=== PATIENT | female | born 1945 | race Caucasian/White ===

== ENCOUNTER 2018-07-20 13:11 | Inpatient (IN) | payer MEDICARE ==
[~2018-07-20] VITALS: Ht 180.3 cm; Wt 113.0 kg
[2018-07-20 17:43] VITALS: BP 136/89
[2018-07-20] MEDS ORDERED: PLEASE ENTER HEIGHT AND WEIGHT MC SCH (18:00)
[2018-07-20] MEDS ORDERED: LABETALOL 5MG/ML, 20ML IVPush PRN (18:00)
[2018-07-20] MEDS ORDERED: PLEASE ENTER ALLERGIES MC SCH (18:00)
[2018-07-20] MEDS ORDERED: hydrALAzine 20 MG/ML, 1ML IVPush PRN (18:00)
[2018-07-20] MEDS ORDERED: VALP250C59 PO (18:38)
[2018-07-20] MEDS ORDERED: SCOP1PAT11 TD (18:38)
[2018-07-20] MEDS ORDERED: LACT1CAP61 PO (18:38)
[2018-07-20] MEDS ORDERED: ALLO300T PO (18:38)
[2018-07-20] MEDS ORDERED: ISOS30TA8 PO (18:38)
[2018-07-20] MEDS ORDERED: HYDR-3240 PO (18:38)
[2018-07-20] MEDS ORDERED: DILT180C72 PO (18:38)
[2018-07-20] MEDS ORDERED: ATOR20TA9 PO (18:38)
[2018-07-20] MEDS ORDERED: PROM25TA10 PO (18:38)
[2018-07-20] MEDS ORDERED: METO50TA82 PO (18:38)
[2018-07-20] MEDS ORDERED: CYCL-259 PO (18:38)
[2018-07-20] MEDS ORDERED: PRED20TA PO (18:38)
[2018-07-20] MEDS ORDERED: ONDA4TAB7 PO (18:38)
[2018-07-20] MEDS ORDERED: DIAZ2TAB PO (18:38)
[2018-07-20] MEDS ORDERED: MECL-76 PO (18:38)
[2018-07-20 18:50] LABS: ANION GAP 8 mmol/L (5-15); CALCIUM 9.3 mg/dL (8.5-10.1); CHLORIDE 103 mmol/L (98-107); CREATININE 0.86 mg/dL (0.55-1.02)
[2018-07-20 19:17] LABS: MD YES; MEAN CORPUSCULAR HGB CONC 31.2 g/dL (32.4-35.8); MEAN CORPUSCULAR VOLUME 67.3 fL (80-100); MEAN PLATELET VOLUME 7.7 fL (7.4-10.4); PLATELET COUNT 140 x10^3/uL (130-400); RED BLOOD COUNT 6.52 x10^6/uL (3.82-5.3); RED CELL DISTRIBUTION WIDTH 17.9 % (9.6-15.2)
[2018-07-20 19:19] LABS: ANISOCYTOSIS 1+; HYPOCHROMIA 1+; LYMPH#(MANUAL) 1.79 x10^3/uL (1-3.4); LYMPHS% (MANUAL) 16 % (22-44); MICROCYTOSIS 1+; MONOS#(MANUAL) 0.22 x10^3/uL (0.3-2.7); MONOS% (MANUAL) 2 % (2-9); MYELOCYTES# (MANUAL) 0.11 x10^3/uL (0-0); MYELOCYTES% (MANUAL) 1 % (0-0); SEG#(MANUAL) 9.07 x10^3/uL (1.8-6.8); SEGS% (MANUAL) 81 % (42-75)
[2018-07-20 19:20] LABS: OVALOCYTES 1+; POLYCHROMASIA 1+; TARGET CELLS 1+
[2018-07-20 19:21] LABS: <PLATELET ESTIMATE> ADEQUATE; LARGE PLATELETS 1+
[2018-07-20] MEDS ORDERED: SCOPOLAMINE TD SCH (20:00)
[2018-07-20] MEDS ORDERED: HYDROcodone/APAP 5/325 TABLET PO PRN (20:00)
[2018-07-20] MEDS ORDERED: ONDANSETRON 4 MG TABLET PO PRN (20:00)
[2018-07-20] MEDS ORDERED: DIAZEPAM 2 MG TABLET PO PRN (20:00)
[2018-07-20] MEDS ORDERED: PROMETHAZINE 25MG TABLET PO PRN (20:00)
[2018-07-20 20:48] VITALS: BP 131/88
[2018-07-20] MEDS: VALPROIC ACID 250 MG CAPSULE PO SCH (20:59)
[2018-07-20] MEDS: METOPROLOL TARTRATE 50 MG TABLET PO SCH (20:59)
[2018-07-20] MEDS: CYCLOBENZAPRINE 10 MG TABLET PO SCH (20:59)
[2018-07-20] MEDS: ATORVASTATIN 20 MG TABLET PO SCH (20:59)
[2018-07-20] MEDS: MECLIZINE 12.5 MG TABLET PO SCH (20:59)
[2018-07-20] MEDS: FAMOTIDINE 20 MG TABLET PO SCH (20:59)
[2018-07-21 02:31] VITALS: BP 124/71
[2018-07-21] MEDS: CYCLOBENZAPRINE 10 MG TABLET PO SCH ×3 (04:08→21:43)
[2018-07-21] MEDS: VALPROIC ACID 250 MG CAPSULE PO SCH ×3 (04:08→21:44)
[2018-07-21] MEDS: MECLIZINE 12.5 MG TABLET PO SCH ×3 (04:10→21:44)
[2018-07-21 08:08] VITALS: BP 135/83
[2018-07-21] MEDS: ISOSORBIDE MONONITRATE ER 30 MG TABLET PO SCH (08:24)
[2018-07-21] MEDS: ALLOPURINOL 300 MG TABLET PO SCH (08:24)
[2018-07-21] MEDS: DILTIAZEM CD 180 MG CAP.ER.24H PO SCH (08:24)
[2018-07-21] MEDS: METOPROLOL TARTRATE 50 MG TABLET PO SCH ×2 (08:25→21:43)
[2018-07-21] MEDS ORDERED: BISACODYL 10 MG SUPP PR PRN (12:30)
[2018-07-21 13:08] LABS: ANION GAP 8 mmol/L (5-15); CALCIUM 8.9 mg/dL (8.5-10.1); CHLORIDE 104 mmol/L (98-107)
[2018-07-21 14:13] VITALS: BP 103/67
[2018-07-21 20:09] VITALS: BP 129/78
[2018-07-21] MEDS: FAMOTIDINE 20 MG TABLET PO SCH (21:44)
[2018-07-21] MEDS: ATORVASTATIN 20 MG TABLET PO SCH (21:44)
[2018-07-22 02:46] VITALS: BP 114/81
[2018-07-22] MEDS: CYCLOBENZAPRINE 10 MG TABLET PO SCH ×3 (05:31→20:00)
[2018-07-22] MEDS: MECLIZINE 12.5 MG TABLET PO SCH ×3 (05:32→20:00)
[2018-07-22] MEDS: VALPROIC ACID 250 MG CAPSULE PO SCH ×3 (05:32→20:00)
[2018-07-22 07:46] VITALS: BP 117/74
[2018-07-22] MEDS: ALLOPURINOL 300 MG TABLET PO SCH (09:08)
[2018-07-22] MEDS: DILTIAZEM CD 180 MG CAP.ER.24H PO SCH (09:08)
[2018-07-22] MEDS: METOPROLOL TARTRATE 50 MG TABLET PO SCH ×2 (09:08→20:00)
[2018-07-22] MEDS: SENNA/DOCUSATE TABLET PO SCH (09:08)
[2018-07-22] MEDS: ISOSORBIDE MONONITRATE ER 30 MG TABLET PO SCH (09:18)
[2018-07-22 12:24] VITALS: BP 104/64
[2018-07-22 14:45] VITALS: BP 98/63
[2018-07-22 19:58] VITALS: BP 121/84
[2018-07-22] MEDS: FAMOTIDINE 20 MG TABLET PO SCH (20:00)
[2018-07-22] MEDS: ATORVASTATIN 20 MG TABLET PO SCH (20:00)
[2018-07-23] MEDS: SODIUM CHLORIDE 0.9% 1,000 ML IV SCH ×2 (00:06→09:14)
[2018-07-23 00:52] VITALS: BP 107/72
[2018-07-23] MEDS: CYCLOBENZAPRINE 10 MG TABLET PO SCH ×3 (04:00→20:00)
[2018-07-23] MEDS: MECLIZINE 12.5 MG TABLET PO SCH ×3 (04:00→20:00)
[2018-07-23] MEDS: VALPROIC ACID 250 MG CAPSULE PO SCH ×3 (04:00→20:00)
[2018-07-23 07:46] VITALS: BP 137/81
[2018-07-23] MEDS: SENNA/DOCUSATE TABLET PO SCH (09:00)
[2018-07-23] MEDS: ISOSORBIDE MONONITRATE ER 30 MG TABLET PO SCH (09:00)
[2018-07-23] MEDS: DILTIAZEM CD 180 MG CAP.ER.24H PO SCH (09:00)
[2018-07-23] MEDS: ALLOPURINOL 300 MG TABLET PO SCH (09:00)
[2018-07-23] MEDS: METOPROLOL TARTRATE 50 MG TABLET PO SCH ×2 (09:08→21:00)
[2018-07-23 13:11] VITALS: BP 114/78
[2018-07-23] MEDS ORDERED: FENTANYL PF 100 MCG/2ML ONE ×2 (15:36→18:44)
[2018-07-23] MEDS ORDERED: BUPIVACAINE/PF-EPI 0.5% 1:200K ONE (16:27)
[2018-07-23] MEDS ORDERED: NEOSTIGMINE 1 MG/ML, 10ML ONE (16:34)
[2018-07-23] MEDS ORDERED: PROPOFOL 10 MG/ML, 20ML ONE (16:34)
[2018-07-23] MEDS ORDERED: GLYCOPYRROLATE 0.2MG/1ML, 5ML ONE (16:34)
[2018-07-23] MEDS ORDERED: ROCURONIUM 10 MG/ML,10ML ONE (16:34)
[2018-07-23] MEDS ORDERED: ONDANSETRON 2MG/ML, 2ML ONE (16:34)
[2018-07-23] MEDS ORDERED: PHENYLEPHRINE 10 MG/ML ONE (16:34)
[2018-07-23] MEDS ORDERED: DEXAMETHASONE 4 MG/ML, 1ML ONE (16:34)
[2018-07-23] MEDS ORDERED: CEFAZOLIN 1,000 MG ONE (16:34)
[2018-07-23] MEDS ORDERED: PROMETHAZINE 25 MG SUPP PR PRN (18:00)
[2018-07-23] MEDS ORDERED: ONDANSETRON 2MG/ML, 2ML IV PRN (18:00)
[2018-07-23] MEDS ORDERED: LABETALOL 5MG/ML, 20ML IV PRN (18:00)
[2018-07-23] MEDS ORDERED: MIDAZOLAM 1 MG/ML, 2ML IV PRN (18:00)
[2018-07-23] MEDS ORDERED: ALBUTEROL/IPRATROPIUM 2.5MG/0.5MG, 3 ML NPPB PRN (18:00)
[2018-07-23] MEDS: FENTANYL PF 100 MCG/2ML IV PRN ×3 (18:40→18:59)
[2018-07-23 20:13] VITALS: BP 117/76
[2018-07-23] MEDS: FAMOTIDINE 20 MG TABLET PO SCH (21:00)
[2018-07-23] MEDS: ATORVASTATIN 20 MG TABLET PO SCH (21:00)
[2018-07-24 00:14] VITALS: BP 130/82
[2018-07-24] MEDS: SODIUM CHLORIDE 0.9% 1,000 ML IV SCH ×3 (01:12→20:34)
[2018-07-24] MEDS: MECLIZINE 12.5 MG TABLET PO SCH ×3 (04:00→20:32)
[2018-07-24] MEDS: VALPROIC ACID 250 MG CAPSULE PO SCH ×3 (04:00→20:32)
[2018-07-24] MEDS: CYCLOBENZAPRINE 10 MG TABLET PO SCH ×3 (04:00→20:33)
[2018-07-24 04:03] VITALS: BP 122/81
[2018-07-24 07:06] VITALS: BP 127/82
[2018-07-24] MEDS: DILTIAZEM CD 180 MG CAP.ER.24H PO SCH (09:00)
[2018-07-24] MEDS: ISOSORBIDE MONONITRATE ER 30 MG TABLET PO SCH (09:00)
[2018-07-24] MEDS: ALLOPURINOL 300 MG TABLET PO SCH (09:00)
[2018-07-24] MEDS: METOPROLOL TARTRATE 50 MG TABLET PO SCH ×2 (09:00→20:33)
[2018-07-24] MEDS: SENNA/DOCUSATE TABLET PO SCH (09:00)
[2018-07-24] MEDS ORDERED: OMNIPAQUE 350 MG/ML, 50 ML BOTTLE ONE (09:43)
[2018-07-24 12:26] VITALS: BP 137/86
[2018-07-24 19:45] VITALS: BP 132/62
[2018-07-24] MEDS: FAMOTIDINE 20 MG TABLET PO SCH (20:32)
[2018-07-24] MEDS: ATORVASTATIN 20 MG TABLET PO SCH (20:33)
[2018-07-25 01:54] VITALS: BP 115/76
[2018-07-25] MEDS: VALPROIC ACID 250 MG CAPSULE PO SCH ×2 (04:23→11:52)
[2018-07-25] MEDS: CYCLOBENZAPRINE 10 MG TABLET PO SCH ×3 (04:24→20:42)
[2018-07-25] MEDS: MECLIZINE 12.5 MG TABLET PO SCH ×3 (04:24→20:42)
[2018-07-25 07:20] VITALS: BP 131/87
[2018-07-25] MEDS: ALLOPURINOL 300 MG TABLET PO SCH (07:58)
[2018-07-25] MEDS: ISOSORBIDE MONONITRATE ER 30 MG TABLET PO SCH (07:59)
[2018-07-25] MEDS: METOPROLOL TARTRATE 50 MG TABLET PO SCH ×2 (07:59→20:43)
[2018-07-25] MEDS: SENNA/DOCUSATE TABLET PO SCH (07:59)
[2018-07-25] MEDS: DILTIAZEM CD 180 MG CAP.ER.24H PO SCH (07:59)
[2018-07-25] MEDS: SODIUM CHLORIDE 0.9% 1,000 ML IV SCH ×2 (08:08→20:44)
[2018-07-25 13:06] LABS: ALBUMIN 2.6 g/dL (3.4-5.0); ANION GAP 5 mmol/L (5-15); CHLORIDE 105 mmol/L (98-107)
[2018-07-25 13:07] LABS: CREATININE 0.48 mg/dL (0.55-1.02)
[2018-07-25 14:20] VITALS: BP 142/92
[2018-07-25 19:42] VITALS: BP 148/91
[2018-07-25] MEDS: FAMOTIDINE 20 MG TABLET PO SCH (20:42)
[2018-07-25] MEDS: ATORVASTATIN 20 MG TABLET PO SCH (20:43)
[2018-07-25] MEDS: VALPROATE SODIUM 250 MG/5 ML ORAL SOLN PO SCH (20:51)
[2018-07-26 02:01] VITALS: BP 137/86
[2018-07-26] MEDS: MECLIZINE 12.5 MG TABLET PO SCH ×2 (04:23→12:00)
[2018-07-26] MEDS: CYCLOBENZAPRINE 10 MG TABLET PO SCH ×2 (04:23→13:04)
[2018-07-26] MEDS: VALPROATE SODIUM 250 MG/5 ML ORAL SOLN PO SCH ×2 (05:25→13:04)
[2018-07-26] MEDS: SODIUM CHLORIDE 0.9% 1,000 ML IV SCH (06:36)
[2018-07-26 07:05] VITALS: BP 145/102
[2018-07-26] MEDS: ISOSORBIDE MONONITRATE ER 30 MG TABLET PO SCH (09:00)
[2018-07-26] MEDS: DILTIAZEM CD 180 MG CAP.ER.24H PO SCH (09:00)
[2018-07-26] MEDS: SENNA/DOCUSATE TABLET PO SCH (09:11)
[2018-07-26] MEDS: METOPROLOL TARTRATE 50 MG TABLET PO SCH (09:11)
[2018-07-26] MEDS: ALLOPURINOL 300 MG TABLET PO SCH (09:11)
[2018-07-26 12:23] VITALS: BP 158/86
== END 2018-07-26 16:59 | DRG 391 ==
LOC: 4NOR 17:03
PROVIDERS: ADMIT Hospitalist; ATTEND Hospitalist
PROC: 8E0W4CZ Robotic Assisted Procedure of Trunk Region, Percutaneous Endoscopic Approach (ICD-10-PCS; 2018-07-23)
PROC: 0DHA3UZ Insertion of Feeding Device into Jejunum, Percutaneous Approach (ICD-10-PCS; principal; 2018-07-23 16:00)
DX: R13.10 Dysphagia, unspecified (principal); E43 Unspecified severe protein-calorie malnutrition; I69.351 Hemiplegia and hemiparesis following cerebral infarction affecting right dominant side; I69.354 Hemiplegia and hemiparesis following cerebral infarction affecting left non-dominant side; M10.9 Gout, unspecified; E87.5 Hyperkalemia; I10 Essential (primary) hypertension; I25.10 Atherosclerotic heart disease of native coronary artery without angina pectoris; I48.2 Chronic atrial fibrillation; Z93.4 Other artificial openings of gastrointestinal tract status; Z95.0 Presence of cardiac pacemaker; I69.391 Dysphagia following cerebral infarction; Z68.34 Body mass index [BMI] 34.0-34.9, adult; Z98.61 Coronary angioplasty status; Z88.0 Allergy status to penicillin; Z88.8 Allergy status to other drugs, medicaments and biological substances; I69.322 Dysarthria following cerebral infarction
CPT/HCPCS: 36415; 71045; 74018; 80048; 82040; 85025; 93005; B4087; G0378; J0690; J1100; J2405; J2704; J2710; J3010; J3490; Q9967; 92523-GN; J2370; J7030; J7512

== ENCOUNTER 2018-07-26 17:07 | Inpatient (IN) | payer MEDICARE ==
[~2018-07-26] VITALS: Ht 177.8 cm; Wt 109.8 kg
[~2018-07-26 17:07] MED LIST: ALLO300T PO; ATOR20TA9 PO; CYCL-259 PO; DIAZ2TAB PO; DILT180C72 PO; HYDR-3240 PO; ISOS30TA8 PO; LACT1CAP61 PO; MECL-76 PO; METO50TA82 PO; ONDA4TAB7 PO; PRED20TA PO; PROM25TA10 PO; SCOP1PAT11 TD; VALP250C59 PO
[2018-07-26] MEDS ORDERED: ONDANSETRON 2MG/ML, 2ML ONE (17:24)
[2018-07-26] MEDS ORDERED: DILTIAZEM 125 MG in DEXTROSE 5% 100 ML IV SCH (17:33)
[2018-07-26] MEDS ORDERED: DILTIAZEM 5 MG/ML, 5ML ONE (17:34)
[2018-07-26 17:57] LABS: ALANINE AMINOTRANSFERASE 24 U/L (12-78); ALBUMIN 3.2 g/dL (3.4-5.0); ANION GAP 10 mmol/L (5-15); CALCIUM 8.9 mg/dL (8.5-10.1); CHLORIDE 104 mmol/L (98-107); CREATININE 0.59 mg/dL (0.55-1.02)
[2018-07-26 17:59] LABS: ALKALINE PHOSPHATASE 76 U/L (45-117); BILIRUBIN,TOTAL 0.9 mg/dL (0.2-1.0); TOTAL PROTEIN 6.8 g/dL (6.4-8.2)
[2018-07-26] MEDS ORDERED: DILTIAZEM 5 MG/ML, 5ML IV ONE (18:00)
[2018-07-26 18:09] LABS: TROPONIN I 0.045 ng/mL (0.000-0.045)
[2018-07-26 18:13] LABS: BASOPHILS # (AUTO) 0.01 x10^3/uL (0-0.1); BASOPHILS % (AUTO) 0 % (0-1); EOSINOPHILS # (AUTO) 0.07 x10^3/uL (0-0.4); EOSINOPHILS % (AUTO) 1 % (1-7); LYMPHOCYTES # (AUTO) 3.08 x10^3/uL (1-3.4); LYMPHOCYTES % (AUTO) 26 % (22-44); MD NO; MEAN CORPUSCULAR HEMOGLOBIN 20.7 pg (27.0-34.8); MEAN CORPUSCULAR HGB CONC 30.5 g/dL (32.4-35.8); MEAN CORPUSCULAR VOLUME 67.6 fL (80-100); MEAN PLATELET VOLUME 8.1 fL (7.4-10.4); MONOCYTES # (AUTO) 1.04 x10^3/uL (0.2-0.8); MONOCYTES % (AUTO) 9 % (2-9); NEUTROPHILS # (AUTO) 7.47 x10^3/uL (1.8-6.8); NEUTROPHILS % (AUTO) 64 % (42-75); PLATELET COUNT 219 x10^3/uL (130-400); RED BLOOD COUNT 6.58 x10^6/uL (3.82-5.3)
[2018-07-26] MEDS ORDERED: SODIUM CHLORIDE FLUSH 10ML SYR IVF PRN (19:00)
[2018-07-26] MEDS ORDERED: SODIUM CHLORIDE 0.9% 1,000 ML IV SCH (21:39)
[2018-07-26] MEDS ORDERED: LABETALOL 5MG/ML, 20ML IVPush PRN (22:00)
[2018-07-26] MEDS ORDERED: morphine SULFATE 10 MG/ML, 1ML IVPush PRN (22:00)
[2018-07-26] MEDS ORDERED: METOPROLOL TARTRATE 50 MG TABLET PO SCH (22:00)
[2018-07-26] MEDS ORDERED: PROMETHAZINE 25 MG/ML, 1ML IM PRN (22:00)
[2018-07-26] MEDS ORDERED: ATORVASTATIN 20 MG TABLET PO SCH (22:00)
[2018-07-26] MEDS ORDERED: MECLIZINE CHEWABLE 25 MG TAB PO SCH (22:00)
[2018-07-26] MEDS ORDERED: CYCLOBENZAPRINE 10 MG TABLET PO SCH (22:00)
[2018-07-26] MEDS ORDERED: BISACODYL 10 MG SUPP PR PRN (22:00)
[2018-07-26] MEDS ORDERED: DILTIAZEM 125 MG in SODIUM CHLORIDE 0.9% 100 ML IV PRN (22:00)
[2018-07-26] MEDS ORDERED: hydrALAzine 20 MG/ML, 1ML IVPush PRN (22:00)
[2018-07-26] MEDS ORDERED: VALPROIC ACID 250 MG CAPSULE PO SCH (22:00)
[2018-07-26] MEDS ORDERED: ONDANSETRON 4 MG TABLET PO PRN (22:00)
[2018-07-26] MEDS ORDERED: ONDANSETRON ODT 4 MG PO PRN (22:00)
[2018-07-26] MEDS ORDERED: POLYETHYLENE GLYCOL 17 GM PACKET PO PRN (22:00)
[2018-07-26 22:28] LABS: FREE T4 (FREE THYROXINE) 1.47 ng/dL (0.76-1.46); THYROID STIMULATING HORMONE 4.39 mIU/L (0.358-3.740)
[2018-07-26 22:45] LABS: HEMOGLOBIN A1C 5.9 % (4.2-6.3)
[2018-07-26] MEDS ORDERED: POLYETHYLENE GLYCOL 17 GM PACKET JT PRN (23:30)
[2018-07-26] MEDS: VALPROATE SODIUM 250 MG/5 ML ORAL SOLN JT SCH (23:42)
[2018-07-27 00:11] VITALS: BP 125/68
[2018-07-27 00:18] VITALS: BP 104/70
[2018-07-27] MEDS ORDERED: ONDANSETRON ODT 4 MG JT PRN (02:00)
[2018-07-27 05:23] LABS: BASOPHILS % (AUTO) 0 % (0-1); EOSINOPHILS # (AUTO) 0.21 x10^3/uL (0-0.4); EOSINOPHILS % (AUTO) 3 % (1-7); LYMPHOCYTES % (AUTO) 33 % (22-44); MD NO; MEAN CORPUSCULAR HGB CONC 30.9 g/dL (32.4-35.8); MEAN CORPUSCULAR VOLUME 67.9 fL (80-100); MEAN PLATELET VOLUME 8.2 fL (7.4-10.4); MONOCYTES # (AUTO) 1.06 x10^3/uL (0.2-0.8); MONOCYTES % (AUTO) 13 % (2-9); NEUTROPHILS # (AUTO) 4.33 x10^3/uL (1.8-6.8); NEUTROPHILS % (AUTO) 52 % (42-75); PLATELET COUNT 171 x10^3/uL (130-400); RED BLOOD COUNT 5.29 x10^6/uL (3.82-5.3); RED CELL DISTRIBUTION WIDTH 18.7 % (9.6-15.2)
[2018-07-27 05:28] LABS: ALANINE AMINOTRANSFERASE 22 U/L (12-78); ALBUMIN 2.4 g/dL (3.4-5.0); ANION GAP 8 mmol/L (5-15); CALCIUM 8.3 mg/dL (8.5-10.1); CHLORIDE 108 mmol/L (98-107); CREATININE 0.41 mg/dL (0.55-1.02)
[2018-07-27 05:33] LABS: ALKALINE PHOSPHATASE 59 U/L (45-117); BILIRUBIN,TOTAL 0.7 mg/dL (0.2-1.0); CHOL/HDL RATIO 2.6; CHOLESTEROL, TOTAL 92 mg/dL (140-239); HDL CHOL % 39 % (28-40); HDL CHOLESTEROL (DIRECT) 36 mg/dL (40-60); LDL CHOLESTEROL,CALCULATED 37 mg/dL (54-169); TOTAL PROTEIN 5.2 g/dL (6.4-8.2); TRIGLYCERIDES 96 mg/dL (50-200); VLDL CHOLESTEROL 19 mg/dL (0-25)
[2018-07-27] MEDS: MECLIZINE CHEWABLE 25 MG TAB JT SCH ×3 (05:52→22:25)
[2018-07-27] MEDS: CYCLOBENZAPRINE 10 MG TABLET JT SCH ×3 (05:52→22:26)
[2018-07-27] MEDS ORDERED: VALPROIC ACID 250 MG CAPSULE JT SCH (06:00)
[2018-07-27] MEDS ORDERED: ONDANSETRON 4 MG TABLET JT PRN (06:00)
[2018-07-27 07:27] VITALS: BP 128/82
[2018-07-27] MEDS ORDERED: DILTIAZEM CD 180 MG CAP.ER.24H PO SCH (09:00)
[2018-07-27] MEDS: SENNA/DOCUSATE TABLET JT SCH (09:00)
[2018-07-27] MEDS ORDERED: SENNA/DOCUSATE TABLET PO SCH (09:00)
[2018-07-27] MEDS ORDERED: ALLOPURINOL 300 MG TABLET PO SCH (09:00)
[2018-07-27] MEDS ORDERED: DILTIAZEM 240 MG CAP.ER.24H PO SCH (09:00)
[2018-07-27] MEDS: ALLOPURINOL 300 MG TABLET JT SCH (09:34)
[2018-07-27] MEDS: METOPROLOL TARTRATE 50 MG TABLET JT SCH ×2 (09:34→22:26)
[2018-07-27] MEDS: VALPROATE SODIUM 250 MG/5 ML ORAL SOLN JT SCH ×2 (09:35→17:26)
[2018-07-27 13:22] VITALS: BP 109/69
[2018-07-27 20:22] VITALS: BP 132/79
[2018-07-27] MEDS: ATORVASTATIN 20 MG TABLET JT SCH (22:26)
[2018-07-28] MEDS: VALPROATE SODIUM 250 MG/5 ML ORAL SOLN JT SCH ×3 (01:37→17:25)
[2018-07-28 02:47] VITALS: BP 108/68
[2018-07-28 03:56] VITALS: BP 150/89
[2018-07-28] MEDS ORDERED: MAGNESIUM SULFATE PMX 2GM/50ML 50 ML IV ONE ×2 (05:00→10:00)
[2018-07-28] MEDS: MECLIZINE CHEWABLE 25 MG TAB JT SCH ×3 (05:59→22:05)
[2018-07-28] MEDS: CYCLOBENZAPRINE 10 MG TABLET JT SCH ×3 (05:59→22:04)
[2018-07-28] MEDS: SENNA/DOCUSATE TABLET JT SCH (07:31)
[2018-07-28 07:39] VITALS: BP 148/72
[2018-07-28] MEDS ORDERED: POTASSIUM PHOSPHATE 44 MEQ in SODIUM CHLORIDE 0.9% 500 ML IV ONE (09:00)
[2018-07-28] MEDS ORDERED: MAGNESIUM SULFATE 6 GM in SODIUM CHLORIDE 0.9% 150 ML IV ONE (09:00)
[2018-07-28] MEDS: METOPROLOL TARTRATE 50 MG TABLET JT SCH (10:00)
[2018-07-28] MEDS ORDERED: MAGNESIUM SULFATE 4 GM in SODIUM CHLORIDE 0.9% 100 ML IV ONE (10:00)
[2018-07-28] MEDS: ALLOPURINOL 300 MG TABLET JT SCH (10:00)
[2018-07-28] MEDS ORDERED: DILTIAZEM 90 MG TABLET PO SCH (11:00)
[2018-07-28 13:41] VITALS: BP 142/78
[2018-07-28] MEDS: DILTIAZEM 30 MG TABLET PO SCH ×2 (16:00→22:04)
[2018-07-28 20:17] VITALS: BP 148/95
[2018-07-28] MEDS: ATORVASTATIN 20 MG TABLET JT SCH (22:04)
[2018-07-29 00:24] VITALS: BP 132/82
[2018-07-29] MEDS: VALPROATE SODIUM 250 MG/5 ML ORAL SOLN JT SCH ×3 (02:36→16:51)
[2018-07-29 05:21] LABS: ANION GAP 7 mmol/L (5-15); CALCIUM 8.1 mg/dL (8.5-10.1); CHLORIDE 105 mmol/L (98-107); CREATININE 0.42 mg/dL (0.55-1.02)
[2018-07-29] MEDS: MECLIZINE CHEWABLE 25 MG TAB JT SCH ×3 (05:38→22:14)
[2018-07-29] MEDS: CYCLOBENZAPRINE 10 MG TABLET JT SCH ×3 (05:39→22:14)
[2018-07-29] MEDS: DILTIAZEM 30 MG TABLET PO SCH (05:39)
[2018-07-29 08:55] VITALS: BP 127/82
[2018-07-29] MEDS ORDERED: PIPERACILLIN-TAZO-DEXTROSE,ISO 100 ML IV ONE (09:00)
[2018-07-29] MEDS ORDERED: LINEZOLID PMX 600MG/300ML 300 ML IV SCH (10:00)
[2018-07-29] MEDS: ALLOPURINOL 300 MG TABLET JT SCH (10:19)
[2018-07-29] MEDS: SENNA/DOCUSATE TABLET JT SCH (10:19)
[2018-07-29] MEDS: DILTIAZEM 30 MG TABLET JT SCH ×3 (12:23→22:14)
[2018-07-29] MEDS ORDERED: PIPERACILLIN/TAZO/PMX 3.375GM 50 ML IV SCH (15:00)
[2018-07-29 15:55] VITALS: BP 122/73
[2018-07-29 21:59] VITALS: BP 111/72
[2018-07-29] MEDS: ATORVASTATIN 20 MG TABLET JT SCH (22:14)
[2018-07-29] MEDS: ONDANSETRON 2MG/ML, 2ML IVPush PRN (22:19)
[2018-07-30 01:20] VITALS: BP 101/72
[2018-07-30] MEDS: VALPROATE SODIUM 250 MG/5 ML ORAL SOLN JT SCH ×3 (02:30→17:55)
[2018-07-30] MEDS: DILTIAZEM 30 MG TABLET JT SCH (05:34)
[2018-07-30] MEDS: CYCLOBENZAPRINE 10 MG TABLET JT SCH ×3 (05:35→21:48)
[2018-07-30] MEDS: MECLIZINE CHEWABLE 25 MG TAB JT SCH ×3 (05:35→21:48)
[2018-07-30 07:51] VITALS: BP 119/68
[2018-07-30] MEDS ORDERED: DILTIAZEM CD 180 MG CAP.ER.24H PO SCH (09:00)
[2018-07-30] MEDS ORDERED: DILTIAZEM 90 MG TABLET ONE (09:27)
[2018-07-30] MEDS: DILTIAZEM 90 MG TABLET PO SCH ×3 (09:42→21:48)
[2018-07-30] MEDS: ALLOPURINOL 300 MG TABLET JT SCH (09:46)
[2018-07-30] MEDS: SENNA/DOCUSATE TABLET JT SCH (09:49)
[2018-07-30 12:27] VITALS: BP 96/55
[2018-07-30 16:42] VITALS: BP 140/82
[2018-07-30] MEDS ORDERED: METOPROLOL TARTRATE 25 MG TABLET PO SCH (18:00)
[2018-07-30 20:00] VITALS: BP 111/73
[2018-07-30 21:46] VITALS: BP 117/75
[2018-07-30] MEDS: ATORVASTATIN 20 MG TABLET JT SCH (21:48)
[2018-07-31] MEDS: VALPROATE SODIUM 250 MG/5 ML ORAL SOLN JT SCH ×3 (01:53→16:56)
[2018-07-31 07:10] VITALS: BP 137/81
[2018-07-31] MEDS ORDERED: DIGOXIN 0.25 MG/ML, 2ML IVPush ONE (08:00)
[2018-07-31] MEDS: DIGOXIN 0.125 MG TABLET PO SCH (09:06)
[2018-07-31] MEDS: DILTIAZEM 90 MG TABLET PO SCH ×4 (09:07→19:54)
[2018-07-31] MEDS: MECLIZINE CHEWABLE 25 MG TAB JT SCH ×2 (09:09→16:56)
[2018-07-31] MEDS: ALLOPURINOL 300 MG TABLET JT SCH (09:11)
[2018-07-31] MEDS: SENNA/DOCUSATE TABLET JT SCH (09:13)
[2018-07-31] MEDS: CYCLOBENZAPRINE 10 MG TABLET JT SCH ×2 (09:14→16:56)
[2018-07-31 10:59] LABS: MICROSCOPIC AUTO
[2018-07-31 11:00] LABS: CULTURE INDICATED? YES
[2018-07-31 13:25] VITALS: BP 124/76
[2018-07-31 19:42] VITALS: BP 105/71
[2018-07-31] MEDS: ATORVASTATIN 20 MG TABLET JT SCH (19:55)
[2018-08-01] MEDS: MECLIZINE CHEWABLE 25 MG TAB JT SCH ×3 (01:16→15:36)
[2018-08-01] MEDS: VALPROATE SODIUM 250 MG/5 ML ORAL SOLN JT SCH ×3 (01:16→15:41)
[2018-08-01] MEDS: CYCLOBENZAPRINE 10 MG TABLET JT SCH ×3 (01:16→15:36)
[2018-08-01 01:30] VITALS: BP 131/82
[2018-08-01 04:42] LABS: ANION GAP 7 mmol/L (5-15); CALCIUM 8.4 mg/dL (8.5-10.1); CHLORIDE 104 mmol/L (98-107); CREATININE 0.49 mg/dL (0.55-1.02)
[2018-08-01] MEDS: DILTIAZEM 90 MG TABLET PO SCH ×3 (06:16→15:36)
[2018-08-01 07:54] VITALS: BP 114/73
[2018-08-01] MEDS: ALLOPURINOL 300 MG TABLET JT SCH (08:48)
[2018-08-01] MEDS: DIGOXIN 0.125 MG TABLET PO SCH (08:49)
[2018-08-01] MEDS: SENNA/DOCUSATE TABLET JT SCH (08:49)
[2018-08-01] MEDS ORDERED: MECL-85 JT (09:59)
[2018-08-01] MEDS ORDERED: POLY17PO5 JT (09:59)
[2018-08-01] MEDS ORDERED: ONDA4TAB13 JT (09:59)
[2018-08-01] MEDS ORDERED: ALLO300T JT (09:59)
[2018-08-01] MEDS ORDERED: ATOR20TA9 JT (09:59)
[2018-08-01] MEDS ORDERED: PRED5TAB PO (09:59)
[2018-08-01] MEDS ORDERED: DILT90TA PO (09:59)
[2018-08-01] MEDS ORDERED: VALP250S JT (09:59)
[2018-08-01] MEDS ORDERED: LACT1CAP24 PO (09:59)
[2018-08-01] MEDS ORDERED: DIGO125T PO (09:59)
[2018-08-01] MEDS ORDERED: CYCL-259 JT (09:59)
[2018-08-01] MEDS ORDERED: CEFTRIAXONE PMX 2GM/50ML 50 ML IV SCH (11:00)
[2018-08-01] MEDS ORDERED: CEFT1FRO2 IV (11:12)
[2018-08-01 15:18] VITALS: BP 130/82
[2018-08-01] MEDS: ONDANSETRON 2MG/ML, 2ML IVPush PRN (15:35)
== END 2018-08-01 16:45 | DRG 308 ==
LOC: ED 17:32 → EDIP 18:58 → 5SO 20:15
PROVIDERS: ADMIT Internal Medicine; ATTEND Internal Medicine
DX: I48.0 Paroxysmal atrial fibrillation (principal); E43 Unspecified severe protein-calorie malnutrition; Z95.0 Presence of cardiac pacemaker; I47.2 Ventricular tachycardia; Z68.34 Body mass index [BMI] 34.0-34.9, adult; E66.01 Morbid (severe) obesity due to excess calories; Z88.0 Allergy status to penicillin; Z88.8 Allergy status to other drugs, medicaments and biological substances; E83.42 Hypomagnesemia; G40.909 Epilepsy, unspecified, not intractable, without status epilepticus; I10 Essential (primary) hypertension; I25.10 Atherosclerotic heart disease of native coronary artery without angina pectoris; R13.10 Dysphagia, unspecified; Z86.73 Personal history of transient ischemic attack (TIA), and cerebral infarction without residual deficits; Z93.4 Other artificial openings of gastrointestinal tract status; Z98.61 Coronary angioplasty status; M10.9 Gout, unspecified; Z79.899 Other long term (current) drug therapy
CPT/HCPCS: 36415; 71045; 80048; 80053; 80061; 80162; 81001; 83036; 83735; 84100; 84439; 84443; 84484; 85025; 87040; 87077; 87086; 87186; 93005; 93306; 96374; 99285; G0378; J0696; J2405; J2543; J3475; J1160; J7030; J7040; J7512